=== PATIENT | female | born 1945 | race Two or more races ===

== ENCOUNTER 2020-10-28 16:18 | Emergency (ER) | payer MEDICARE, MEDICAID ==
[~2020-10-28] VITALS: Ht 165.1 cm; Wt 73.0 kg
[2020-10-29] MEDS ORDERED: PROPOFOL 200MG/20ML VIAL IV ONE (00:30)
[2020-10-29] MEDS ORDERED: MORPHINE SULFATE 4 MG/ML CPJ (NOT FOR IM USE) IV ONE (00:30)
[2020-10-29] MEDS ORDERED: KETAMINE HCL 50 MG/ML 10ML IV ONE (00:30)
[2020-10-29 02:43] LABS: HEMATOCRIT 29.3 % (36.0-48.0); MEAN CORPUSCULAR HEMOGLOBIN 30.4 pg (28.0-32.0); MEAN CORPUSCULAR VOLUME 88.9 fL (81.0-99.0); PLATELET 205 x1000/uL (130-400)
[2020-10-29 02:52] LABS: CHLORIDE 113 mEq/L (98-107)
[2020-10-29] MEDS ORDERED: HYDRALAZINE 20MG/ML VIAL IV PRN (05:15)
[2020-10-29] MEDS ORDERED: CLONIDINE 0.2MG TABLET PO PRN (05:15)
[2020-10-29] MEDS ORDERED: MORPHINE SULFATE 2 MG/ML CPJ (NOT FOR IM USE) IV PRN (09:00)
[2020-10-29] MEDS ORDERED: ACETAMINOPHEN 325MG TABLET PO PRN (09:00)
[2020-10-29] MEDS ORDERED: ONDANSETRON HCL 4MG/2ML INJ IV PRN (09:00)
[2020-10-29] MEDS ORDERED: HYDROCODONE/ACETAMINOPHEN 5/325MG TABLET PO PRN (09:00)
[2020-10-29] MEDS ORDERED: AMLODIPINE 10MG TABLET PO SCH (09:00)
[2020-10-29 13:30] VITALS: BP 170/71
[2020-10-29] MEDS ORDERED: DEXTROSE 50% WATER 50ML SYRINGE IV PRN (14:30)
[2020-10-29] MEDS ORDERED: BLOOD SUGAR DIAGNOSTIC STRIP TEST SCH (17:00)
[2020-10-29] MEDS ORDERED: INSULIN LISPRO 100 UNITS/ML SUBCUT SCH (18:20)
== END 2020-10-29 14:00 | disposition home or self-care (01) ==
LOC: ER 16:18 → ENRESERV 10-29 10:22 → CANRESERV 10-29 10:22 → CANBEDREQ 10-29 12:37 → ER 10-29 14:00
DX: S43.004A Unspecified dislocation of right shoulder joint, initial encounter (principal); E11.9 Type 2 diabetes mellitus without complications; I10 Essential (primary) hypertension; Z86.73 Personal history of transient ischemic attack (TIA), and cerebral infarction without residual deficits; X58.XXXA Exposure to other specified factors, initial encounter; Y93.89 Activity, other specified; Y92.89 Other specified places as the place of occurrence of the external cause; Y99.8 Other external cause status; Z98.890 Other specified postprocedural states
CPT/HCPCS: 23650; 36415; 71045; 73020; 73030; 80053; 82962; 85027; 93005; 99152; 99285; J0360; J2704; J3490; J2270; L3670

== ENCOUNTER 2022-01-29 13:29 | Emergency (ER) | payer MEDICARE, MEDICAID ==
[~2022-01-29] VITALS: Ht 165.1 cm; Wt 104.0 kg
[~2022-01-29 13:29] MED LIST: ASPI-1497 PO; ATOR40TA70 PO; DILT180T11 PO; FAMO20TA8 PO; FERR325T6 PO; FOLI-43 PO; GABA-529 PO; IBUP-2028 PO; LEVE500T19 PO; LEVVL SQ; LOSA50TA41 PO; METF-416 PO
[2022-01-29 15:15] LABS: CHLORIDE 105 mEq/L (98-107)
[2022-01-29 15:20] LABS: HEMATOCRIT. 32.4 % (36.0-48.0); HEMOGLOBIN. 10.8 g/dL (12.0-16.0); MEAN CORPUSCULAR HEMOGLOBIN 30.6 pg (28.0-32.0); MEAN CORPUSCULAR VOLUME 91.3 fL (81.0-99.0); MEAN PLATELET VOLUME 8.1 fl (7.4-10.4); PLATELET 194 x1000/uL (130-400); RED BLOOD CELL COUNT 3.54 mill/uL (4.2-5.4); RED CELL DISTRIBUTION WIDTH 14.3 % (11.6-14.6)
[2022-01-29 15:59] LABS: PLATELET ESTIMATE NORMAL
[2022-01-29] MEDS ORDERED: CLONIDINE 0.2MG TABLET PO ONE (17:00)
[2022-01-29 20:00] VITALS: BP 128/48
== END 2022-01-29 22:47 ==
LOC: ER 13:29
DX: I10 Essential (primary) hypertension (principal); R09.02 Hypoxemia; D64.9 Anemia, unspecified; E11.9 Type 2 diabetes mellitus without complications; F03.90 Unspecified dementia, unspecified severity, without behavioral disturbance, psychotic disturbance, mood disturbance, and anxiety; I69.351 Hemiplegia and hemiparesis following cerebral infarction affecting right dominant side; K21.9 Gastro-esophageal reflux disease without esophagitis; G40.909 Epilepsy, unspecified, not intractable, without status epilepticus; E78.00 Pure hypercholesterolemia, unspecified; Z66 Do not resuscitate; Z79.82 Long term (current) use of aspirin; Z79.4 Long term (current) use of insulin
CPT/HCPCS: 36415; 71045; 80053; 83880; 84484; 85025; 93005; 99285

== ENCOUNTER 2022-08-15 01:13 | Inpatient (IN) | payer MEDICARE, MEDICAID ==
[~2022-08-15] VITALS: Ht 167.6 cm; Wt 78.5 kg
[2022-08-15] MEDS ORDERED: SODIUM CHLORIDE 0.9% 1,000 ML IV ONE (02:00)
[2022-08-15 02:31] LABS: CHLORIDE 98 mEq/L (98-107)
[2022-08-15 02:42] LABS: HEMATOCRIT. 29.3 % (36.0-48.0); HEMOGLOBIN. 10.3 g/dL (12.0-16.0); MEAN CORPUSCULAR HEMOGLOBIN 32.5 pg (28.0-32.0); MEAN PLATELET VOLUME 8.5 fl (7.4-10.4); PLATELET 176 x1000/uL (130-400); RED BLOOD CELL COUNT 3.15 mill/uL (4.2-5.4); RED CELL DISTRIBUTION WIDTH 14.5 % (11.6-14.6)
[2022-08-15 04:27] LABS: PLATELET ESTIMATE NORMAL
[2022-08-15 10:00] VITALS: BP 146/30
[2022-08-15] MEDS ORDERED: NA PHOS,M-B/NA PHOS,DI-BA ENEMA 118ML PR NR (11:45)
[2022-08-15] MEDS ORDERED: ACETAMINOPHEN 325MG TABLET PO PRN (11:45)
[2022-08-15] MEDS ORDERED: LOSARTAN POTASSIUM 50 MG TABLET PO SCH (11:45)
[2022-08-15] MEDS ORDERED: ONDANSETRON HCL 4MG/2ML INJ IV PRN (11:45)
[2022-08-15 16:00] VITALS: BP 169/43
[2022-08-15] MEDS: AMLODIPINE 10MG TABLET PO SCH (18:16)
[2022-08-15] MEDS: LACTULOSE 20G/30ML UDC PO SCH ×2 (18:16→21:07)
[2022-08-15 20:10] VITALS: BP 175/63
[2022-08-16 00:03] VITALS: BP 168/56
[2022-08-16] MEDS: LACTULOSE 20G/30ML UDC PO SCH ×3 (05:38→21:02)
[2022-08-16 06:32] VITALS: BP 162/60
[2022-08-16 07:52] LABS: BASOPHILS % 0.7 % (0.0-2.0); HEMATOCRIT. 26.9 % (36.0-48.0); HEMOGLOBIN. 9.3 g/dL (12.0-16.0); LYMPHOCYTES % 19.7 % (20.0-50.0); MEAN CORPUSCULAR HEMOGLOBIN 31.8 pg (28.0-32.0); MEAN PLATELET VOLUME 8.3 fl (7.4-10.4); MONOCYTES % 7.5 % (2.0-8.0); NEUTROPHILS % 68.1 % (40.0-76.0); PLATELET 152 x1000/uL (130-400); RED BLOOD CELL COUNT 2.92 mill/uL (4.2-5.4); RED CELL DISTRIBUTION WIDTH 14.3 % (11.6-14.6)
[2022-08-16 08:00] VITALS: BP 171/46
[2022-08-16] MEDS: AMLODIPINE 10MG TABLET PO SCH (08:32)
[2022-08-16] MEDS: LOSARTAN POTASSIUM 50 MG TABLET PO SCH ×2 (09:00→17:59)
[2022-08-16 09:38] LABS: CHLORIDE 104 mEq/L (98-107)
[2022-08-16 12:00] VITALS: BP 152/52
[2022-08-16] MEDS: DOCUSATE SODIUM 250MG CAPSULE PO SCH (14:45)
[2022-08-16] MEDS ORDERED: NA PHOS,M-B/NA PHOS,DI-BA ENEMA 118ML PR NR (14:45)
[2022-08-16 16:00] VITALS: BP 160/56
[2022-08-16 20:12] VITALS: BP 199/70
[2022-08-17 00:38] VITALS: BP 202/68
[2022-08-17 04:16] VITALS: BP 198/68
[2022-08-17] MEDS: LACTULOSE 20G/30ML UDC PO SCH ×3 (06:11→21:14)
[2022-08-17 08:00] VITALS: BP 153/60
[2022-08-17] MEDS: AMLODIPINE 10MG TABLET PO SCH ×2 (09:00→11:57)
[2022-08-17] MEDS: DOCUSATE SODIUM 250MG CAPSULE PO SCH (09:00)
[2022-08-17] MEDS: LOSARTAN POTASSIUM 50 MG TABLET PO SCH ×2 (09:00→18:04)
[2022-08-17] MEDS ORDERED: BISACODYL 10MG SUPP PR NR (11:30)
[2022-08-17 12:00] VITALS: BP 178/67
[2022-08-17 16:00] VITALS: BP 169/66
[2022-08-17] MEDS: METOCLOPRAMIDE HCL 10MG/2ML VIAL IV SCH ×3 (16:03→23:05)
[2022-08-17] MEDS: POLYETHYLENE GLYCOL 3350 (17GM) 1 DOSE PACK PO SCH (16:07)
[2022-08-17 16:12] LABS: BASOPHILS % 0.3 % (0.0-2.0); EOSINOPHILS % 1.1 % (0.0-5.0); HEMATOCRIT. 28.3 % (36.0-48.0); HEMOGLOBIN. 10.1 g/dL (12.0-16.0); LYMPHOCYTES % 11.6 % (20.0-50.0); MEAN CORPUSCULAR HEMOGLOBIN 32.9 pg (28.0-32.0); MEAN CORPUSCULAR VOLUME 92.5 fL (81.0-99.0); MEAN PLATELET VOLUME 8.6 fl (7.4-10.4); MONOCYTES % 6.9 % (2.0-8.0); NEUTROPHILS % 80.1 % (40.0-76.0); PLATELET 155 x1000/uL (130-400); RED BLOOD CELL COUNT 3.06 mill/uL (4.2-5.4)
[2022-08-17 16:20] LABS: PROTHROMBIN TIME 10.6 sec (9.6-11.0)
[2022-08-17 16:40] LABS: CHLORIDE 101 mEq/L (98-107)
[2022-08-17 16:45] LABS: PHOSPHORUS 3.5 mg/dL (2.5-4.9); TOTAL IRON BINDING CAPACITY 236 ug/dL (250-450)
[2022-08-17 17:01] LABS: FERRITIN 50 ng/mL (10-291)
[2022-08-17 17:16] LABS: VITAMIN B12 SERUM 356 pg/mL (211-911)
[2022-08-17 20:00] VITALS: BP 155/57
[2022-08-17] MEDS: SENNOSIDES/DOCUSATE SOD 8.6/50MG TABLET PO SCH (21:15)
[2022-08-18] VITALS: BP 148/60
[2022-08-18 04:00] VITALS: BP 148/77
[2022-08-18] MEDS: METOCLOPRAMIDE HCL 10MG/2ML VIAL IV SCH ×3 (06:29→17:45)
[2022-08-18] MEDS: LACTULOSE 20G/30ML UDC PO SCH ×3 (06:29→20:29)
[2022-08-18 08:00] VITALS: BP 184/65
[2022-08-18] MEDS: AMLODIPINE 10MG TABLET PO SCH (09:08)
[2022-08-18] MEDS: POLYETHYLENE GLYCOL 3350 (17GM) 1 DOSE PACK PO SCH (09:08)
[2022-08-18] MEDS: LOSARTAN POTASSIUM 50 MG TABLET PO SCH ×2 (09:08→17:45)
[2022-08-18] MEDS: DOCUSATE SODIUM 250MG CAPSULE PO SCH (09:08)
[2022-08-18 12:00] VITALS: BP 131/61
[2022-08-18 16:00] VITALS: BP 177/64
[2022-08-18 20:00] VITALS: BP 171/64
[2022-08-18] MEDS: SENNOSIDES/DOCUSATE SOD 8.6/50MG TABLET PO SCH (20:28)
[2022-08-19] VITALS: BP 175/53
[2022-08-19] MEDS: METOCLOPRAMIDE HCL 10MG/2ML VIAL IV SCH ×4 (00:19→17:37)
[2022-08-19 04:00] VITALS: BP 159/58
[2022-08-19] MEDS: LACTULOSE 20G/30ML UDC PO SCH ×3 (05:00→19:57)
[2022-08-19 08:00] VITALS: BP 178/61
[2022-08-19] MEDS: DOCUSATE SODIUM 250MG CAPSULE PO SCH (09:08)
[2022-08-19] MEDS: LOSARTAN POTASSIUM 50 MG TABLET PO SCH ×2 (09:08→17:37)
[2022-08-19] MEDS: POLYETHYLENE GLYCOL 3350 (17GM) 1 DOSE PACK PO SCH (09:08)
[2022-08-19] MEDS: AMLODIPINE 10MG TABLET PO SCH (09:09)
[2022-08-19 12:00] VITALS: BP 165/63
[2022-08-19 13:25] LABS: BASOPHILS % 0.7 % (0.0-2.0); HEMATOCRIT. 30.2 % (36.0-48.0); HEMOGLOBIN. 10.9 g/dL (12.0-16.0); LYMPHOCYTES % 13.7 % (20.0-50.0); MEAN CORPUSCULAR HEMOGLOBIN 32.9 pg (28.0-32.0); MEAN CORPUSCULAR VOLUME 91.6 fL (81.0-99.0); MEAN PLATELET VOLUME 8.9 fl (7.4-10.4); MONOCYTES % 7.2 % (2.0-8.0); NEUTROPHILS % 75.4 % (40.0-76.0); PLATELET 177 x1000/uL (130-400); RED CELL DISTRIBUTION WIDTH 13.7 % (11.6-14.6)
[2022-08-19 14:06] LABS: CHLORIDE 102 mEq/L (98-107)
[2022-08-19 16:00] VITALS: BP 166/55
[2022-08-19] MEDS: SENNOSIDES/DOCUSATE SOD 8.6/50MG TABLET PO SCH (19:57)
[2022-08-19 20:00] VITALS: BP 146/36
[2022-08-20] VITALS (7 sets, daily range): BP systolic 140–170; BP diastolic 55–68
[2022-08-20] MEDS: METOCLOPRAMIDE HCL 10MG/2ML VIAL IV SCH ×4 (05:21→19:07)
[2022-08-20 07:13] LABS: BASOPHILS % 0.7 % (0.0-2.0); EOSINOPHILS % 4.3 % (0.0-5.0); HEMATOCRIT. 31.2 % (36.0-48.0); LYMPHOCYTES % 21.4 % (20.0-50.0); MEAN CORPUSCULAR HEMOGLOBIN 32.3 pg (28.0-32.0); MEAN CORPUSCULAR VOLUME 91.4 fL (81.0-99.0); MONOCYTES % 7.9 % (2.0-8.0); NEUTROPHILS % 65.7 % (40.0-76.0); PLATELET 171 x1000/uL (130-400); RED BLOOD CELL COUNT 3.41 mill/uL (4.2-5.4)
[2022-08-20 09:02] LABS: CHLORIDE 104 mEq/L (98-107)
[2022-08-20] MEDS: POLYETHYLENE GLYCOL 3350 (17GM) 1 DOSE PACK PO SCH (10:54)
[2022-08-20] MEDS: AMLODIPINE 10MG TABLET PO SCH (10:55)
[2022-08-20] MEDS: LOSARTAN POTASSIUM 50 MG TABLET PO SCH ×2 (10:55→19:07)
[2022-08-20] MEDS: DOCUSATE SODIUM 250MG CAPSULE PO SCH (10:55)
[2022-08-20] MEDS ORDERED: SENNOSIDES/DOCUSATE SOD 8.6/50MG TABLET PO PRN (12:15)
[2022-08-21] VITALS: BP 142/65
[2022-08-21] MEDS: METOCLOPRAMIDE HCL 10MG/2ML VIAL IV SCH ×5 (00:38→23:16)
[2022-08-21 04:00] VITALS: BP 153/61
[2022-08-21 08:00] VITALS: BP 149/47
[2022-08-21 08:13] LABS: BASOPHILS % 0.5 % (0.0-2.0); HEMATOCRIT. 28.7 % (36.0-48.0); HEMOGLOBIN. 10.2 g/dL (12.0-16.0); LYMPHOCYTES % 14.2 % (20.0-50.0); MEAN CORPUSCULAR HEMOGLOBIN 32.3 pg (28.0-32.0); MEAN CORPUSCULAR VOLUME 91.2 fL (81.0-99.0); MEAN PLATELET VOLUME 8.5 fl (7.4-10.4); MONOCYTES % 8.8 % (2.0-8.0); NEUTROPHILS % 75.5 % (40.0-76.0); PLATELET 162 x1000/uL (130-400); RED BLOOD CELL COUNT 3.15 mill/uL (4.2-5.4)
[2022-08-21] MEDS: LOSARTAN POTASSIUM 50 MG TABLET PO SCH ×2 (09:09→17:00)
[2022-08-21] MEDS: DOCUSATE SODIUM 250MG CAPSULE PO SCH (09:09)
[2022-08-21] MEDS: AMLODIPINE 10MG TABLET PO SCH (09:11)
[2022-08-21] MEDS: POLYETHYLENE GLYCOL 3350 (17GM) 1 DOSE PACK PO SCH (09:11)
[2022-08-21 10:10] LABS: CHLORIDE 103 mEq/L (98-107)
[2022-08-21 12:00] VITALS: BP 102/57
[2022-08-21 16:00] VITALS: BP 142/45
[2022-08-21 20:00] VITALS: BP 133/55
[2022-08-22] VITALS: BP 162/50
[2022-08-22 04:00] VITALS: BP 160/57
[2022-08-22] MEDS: METOCLOPRAMIDE HCL 10MG/2ML VIAL IV SCH ×3 (06:57→18:58)
[2022-08-22 08:00] VITALS: BP 142/58
[2022-08-22 08:39] LABS: BASOPHILS % 0.3 % (0.0-2.0); EOSINOPHILS % 0.1 % (0.0-5.0); HEMATOCRIT. 27.1 % (36.0-48.0); HEMOGLOBIN. 9.8 g/dL (12.0-16.0); LYMPHOCYTES % 9.4 % (20.0-50.0); MEAN CORPUSCULAR HEMOGLOBIN 32.4 pg (28.0-32.0); MEAN CORPUSCULAR VOLUME 89.8 fL (81.0-99.0); MEAN PLATELET VOLUME 8.3 fl (7.4-10.4); NEUTROPHILS % 84.2 % (40.0-76.0); PLATELET 182 x1000/uL (130-400); RED BLOOD CELL COUNT 3.02 mill/uL (4.2-5.4); RED CELL DISTRIBUTION WIDTH 13.7 % (11.6-14.6)
[2022-08-22] MEDS: LOSARTAN POTASSIUM 50 MG TABLET PO SCH ×2 (09:00→17:00)
[2022-08-22] MEDS: DOCUSATE SODIUM 250MG CAPSULE PO SCH (09:00)
[2022-08-22] MEDS: AMLODIPINE 10MG TABLET PO SCH (09:00)
[2022-08-22] MEDS: POLYETHYLENE GLYCOL 3350 (17GM) 1 DOSE PACK PO SCH (09:00)
[2022-08-22 12:00] VITALS: BP 154/63
[2022-08-22 16:00] VITALS: BP 162/67
[2022-08-22 17:11] LABS: CHLORIDE 101 mEq/L (98-107)
[2022-08-22 20:00] VITALS: BP 147/55
[2022-08-23] MEDS: METOCLOPRAMIDE HCL 10MG/2ML VIAL IV SCH ×3 (00:40→12:49)
[2022-08-23 04:00] VITALS: BP 153/63
[2022-08-23 08:00] VITALS: BP 183/56
[2022-08-23 09:04] LABS: BASOPHILS % 0.4 % (0.0-2.0); HEMATOCRIT. 29.7 % (36.0-48.0); HEMOGLOBIN. 10.5 g/dL (12.0-16.0); LYMPHOCYTES % 11.2 % (20.0-50.0); MEAN CORPUSCULAR HEMOGLOBIN 32.3 pg (28.0-32.0); MEAN CORPUSCULAR VOLUME 91.2 fL (81.0-99.0); MEAN PLATELET VOLUME 8.4 fl (7.4-10.4); MONOCYTES % 4.6 % (2.0-8.0); NEUTROPHILS % 82.8 % (40.0-76.0); PLATELET 199 x1000/uL (130-400); RED BLOOD CELL COUNT 3.25 mill/uL (4.2-5.4); RED CELL DISTRIBUTION WIDTH 13.5 % (11.6-14.6)
[2022-08-23] MEDS: LOSARTAN POTASSIUM 50 MG TABLET PO SCH (09:08)
[2022-08-23] MEDS: DOCUSATE SODIUM 250MG CAPSULE PO SCH (09:08)
[2022-08-23] MEDS: POLYETHYLENE GLYCOL 3350 (17GM) 1 DOSE PACK PO SCH (09:08)
[2022-08-23] MEDS: AMLODIPINE 10MG TABLET PO SCH (09:08)
[2022-08-23 09:24] LABS: CHLORIDE 97 mEq/L (98-107)
[2022-08-23 13:59] VITALS: BP 128/80
== END 2022-08-23 14:36 | DRG 254 ==
LOC: ER 01:19 → 6EST 05:40 → EDBEDREQTM 05:51 → EDBEDREQ 05:51
PROVIDERS: ADMIT Internal Medicine; ATTEND Internal Medicine
DX: K59.00 Constipation, unspecified (principal); E44.1 Mild protein-calorie malnutrition; K56.7 Ileus, unspecified; E87.1 Hypo-osmolality and hyponatremia; I69.351 Hemiplegia and hemiparesis following cerebral infarction affecting right dominant side; D63.8 Anemia in other chronic diseases classified elsewhere; F03.90 Unspecified dementia, unspecified severity, without behavioral disturbance, psychotic disturbance, mood disturbance, and anxiety; K62.89 Other specified diseases of anus and rectum; E11.9 Type 2 diabetes mellitus without complications; E78.00 Pure hypercholesterolemia, unspecified; I10 Essential (primary) hypertension; M24.541 Contracture, right hand; K21.9 Gastro-esophageal reflux disease without esophagitis; I25.2 Old myocardial infarction; Z85.038 Personal history of other malignant neoplasm of large intestine; Z90.49 Acquired absence of other specified parts of digestive tract; Z79.82 Long term (current) use of aspirin; Z79.84 Long term (current) use of oral hypoglycemic drugs; Z79.4 Long term (current) use of insulin; Z79.899 Other long term (current) drug therapy; Z68.27 Body mass index [BMI] 27.0-27.9, adult
CPT/HCPCS: 36415; 74018; 74176; 80048; 80053; 82607; 82728; 83540; 83550; 83605; 83735; 84100; 85025; 85044; 92610; 99285; A6261; C1893; J2765; J7030